=== PATIENT | male | born 1975 | race Two or more races ===

== ENCOUNTER 2020-10-22 13:00 | Day surgery (SDC) | payer MEDICAID ==
[2020-10-18 13:45] LABS: Basophils # (auto) 0 10 ^3/uL (0-0.2); Basophils % (auto) 0.6 % (0.0-2.0); Eosinophils # (auto) 0.2 10 ^3/uL (0-0.8); Eosinophils % (auto) 2.4 % (0.0-7.0); Hematocrit 45.9 % (41.0-53.0); Lymphocytes # (auto) 2.4 10 ^3/uL (0.4-5.4); Lymphocytes % (auto) 32.2 % (10.0-50.0); Mean Corpuscular Hemoglobin 29.8 pg (28.0-32.0); Mean Corpuscular Volume 85.1 fL (80.0-100.0); Monocytes # (auto) 0.8 10 ^3/uL (0-1.3); Monocytes % (auto) 10.7 % (0.0-12.0); Neutrophils # (auto) 4.1 10 ^3/uL (1.6-8.6); Neutrophils % (auto) 54.1 % (37.0-80.0); Nucleated Red Blood Cells % 0.1 %; Red Blood Cells 5.39 10^6/uL (4.5-5.90); Red Cell Distribution Width 14.1 % (11.8-14.3); White Blood Cell 7.6 10^3/uL (4.4-10.8)
[2020-10-18 14:26] LABS: Urine Bacteria NONE SEEN /hpf (None Seen); Urine Blood TRACE /uL (Negative); Urine Specific Gravity 1.028 (1.001-1.035); Urine WBC 1 /hpf (0 - 3)
[2020-10-18 14:37] LABS: Albumin 3.6 g/dL (3.4-5.0); Calcium 8.7 mg/dL (8.5-10.1); Potassium 4.2 mmol/L (3.5-5.1)
[2020-10-18 14:40] LABS: BUN/Creatinine Ratio 19.3; Bilirubin, Total 0.3 mg/dL (0.2-1.0); Total Protein 7.5 g/dL (6.4-8.2)
[~2020-10-22] VITALS: Ht 180.3 cm; Wt 95.3 kg
[2020-10-22] MEDS ORDERED: ceFAZolin 1GM/50ML 100 ML IV ONE (13:11)
[2020-10-22] MEDS ORDERED: LIDOCAINE 2% (LOCAL ANESTH.) PF 5ml SDV ONE (15:29)
[2020-10-22] MEDS ORDERED: GLYCOPYRROLATE 0.2 MG/ML 1ML VIAL ONE (15:29)
[2020-10-22] MEDS ORDERED: KETOROLAC TROMETH 30 MG/ML 1ML VIAL ONE (15:29)
[2020-10-22] MEDS ORDERED: MIDAZOLAM HCL 2MG/2ML 2ml VIAL (1mg/ml) ONE (15:29)
[2020-10-22] MEDS ORDERED: MEPERIDINE HCL (50 MG/ML) 1 ML VIAL ONE (15:29)
[2020-10-22] MEDS ORDERED: DexAMETHasone SOD PHOS 10MG/1ML VIAL INJ ONE (15:29)
[2020-10-22] MEDS ORDERED: fentaNYL CITRATE 100 MCG/2 ML VL ONE (15:29)
[2020-10-22] MEDS ORDERED: ONDANSETRON HCL 4 MG/2 ML VIAL ONE (15:29)
[2020-10-22] MEDS ORDERED: PROPOFOL 10 MG/ML 20 ML IV ONE (15:29)
[2020-10-22] MEDS ORDERED: EPINEPHrine HCL 1 MG/1 ML AMP ONE (17:51)
[2020-10-22] MEDS ORDERED: BUPIVACAINE HCL 50 ML ONE (17:51)
[2020-10-22] MEDS ORDERED: ONDANSETRON HCL 4 MG/2 ML VIAL IV PRN (19:30)
[2020-10-22] MEDS ORDERED: HYDROmorphone HCL 2 MG/ML VL IV PRN (19:30)
[2020-10-22 20:00] VITALS: BP 111/81
== END 2020-10-22 20:15 | disposition home or self-care (01) ==
LOC: SUR 13:00
PROVIDERS: ATTEND Orthopaedic Surgery Sports Medicine
DX: S83.232D Complex tear of medial meniscus, current injury, left knee, subsequent encounter (principal); Z90.49 Acquired absence of other specified parts of digestive tract; Z68.29 Body mass index [BMI] 29.0-29.9, adult; Z20.822 Contact with and (suspected) exposure to COVID-19; X58.XXXD Exposure to other specified factors, subsequent encounter
CPT/HCPCS: 29882; 36415; 80053; 81001; 85025; J0171; J0690; J1100; J1885; J2001; J2175; J2250; J2405; J2704; J3010; J3490; U0003

== ENCOUNTER 2024-10-20 23:39 | Inpatient (IN) | payer MEDICAID ==
[~2024-10-20] VITALS: Ht 180.3 cm; Wt 97.5 kg
--- NOTE | 2024-10-20 23:53 | ECG ---
[facility] Test Date: 2024-10-20 Test Time: 23:42:58 Pat Name: ROMEO SMITH Department: Room: 0235 Gender: M Director Distribution: SCOTT : 1975 Requested By: PARVIZ PERES Order Number: [id number] Reading MD: Tian Caicedo Measurements Intervals [place] Rate: 123 P: 25 NE: 114 QRS: -13 QRSD: 77 T: 14 QT: 290 QTc: 415 Interpretive Statements Sinus tachycardia Electronically Signed On 10-25-2024 9:27:46 PDT by Tian Caicedo Please click the below link to view image of tracing.
[2024-10-21] VITALS (8 sets, daily range): BP systolic 102–115; BP diastolic 69–82; PULSE 70–97; RESP 16–21; TEMP 97.6–98.5; O2SAT 90–96
[2024-10-21] MEDS: IPRATROPIUM BROM 0.5 MG/2.5ML INH SOL NEB ONE
[2024-10-21] MEDS: ALBUTEROL SULF 2.5 MG/0.5ML(0.5%) NEB SOLN NEB ONE
--- NOTE | 2024-10-21 00:06 | ED.PDOC ---
History of Present Illness HPI Comments This patient is a 49-year-old male who arrived at the ED today via EMS for shortness of breath concerns for the past three days.. Patient recently diagnosed with thrombotic thrombocytopenic purpura. States for the past 3 days, generalized weakness associated with fever, chills, cough, and shortness a breath. Denies any acute chest pains. Upon arrival patient tachycardic at 130s, saturating 90 sat room air. Chief Complaint: Shortness a breath Time Seen by MD: 00:05 Reviewed Notes: Outreach Liaison Notes Allergies: Coded Allergies: NO KNOWN ALLERGIES (Unverified , 10/18/20) Home Meds No Active Prescriptions or Reported Meds Information Source: Patient Mode of Arrival: EMS Severity: Moderate Timing: Days Duration: Intermittent Prehospital treatment: Oxygen Past Medical History PAST MEDICAL HISTORY: Arthritis Past Medical History (Other): Thrombotic thrombocytopenic purpura Surgical History: Denies all surgeries Family History Family History: Reviewed,noncontributory to illness Social History Smoker: Non-Smoker Alcohol: Denies ETOH Use Drugs: Denies Drug Use Lives In: Home Constitutional: reports: chills, fever, weakness; denies: diaphoresis, fatigue, malaise, sweats, others EENTM: denies: blurred vision, double vision, ear bleeding, ear discharge, ear drainage, ear pain, ear ringing, eye pain, eye redness, hearing loss, mouth pain, mouth swelling, nasal discharge, nose bleeding, nose congestion, nose pain, photophobia, tearing, throat pain, throat swelling, voice changes, others Respiratory: reports: cough, SOB at rest, shortness of breath; denies: hemoptysis, orthopnea, SOB with excertion, stridor, wheezing, others Cardiovascular: reports: palpitations; denies: chest pain, dizzy spells, diaphoresis, Dyspnea on exertion, edema, irregular heart beat, left arm pain, lightheadedness, PND, syncope, others Gastrointestinal: denies: abdomen distended, abdominal pain, blood streaked bowels, constipated, diarrhea, dysphagia, difficulty swallowing, hematemesis, melena, nausea, poor appetite, poor fluid intake, rectal bleeding, rectal pain, vomiting, others Genitourinary: denies: burning, dysuria, flank pain, frequency, hematuria, incontinence, penile discharge, penile sore, pain, testicle pain, testicle swelling, urgency, others Neurological: denies: dizziness, fainting, headache, left sided numbness, left sided weakness, numbness, paresthesia, pre-existing deficit, right sided numbness, right sided weakness, seizure, speech problems, tingling, tremors, weakness, others Musculoskeletal: denies: back pain, gout, joint pain, joint swelling, muscle pain, muscle stiffness, neck pain, others Integumetry: denies: bruises, change in color, change in hair/nails, dryness, laceration, lesions, lumps, rash, wounds, others Allergic/Immunocompromised: denies: Difficulty Healing, Frequent Infections, Hives, Itching, others Hematologic/Lymphatic: denies: anemia, blood clots, easy bleeding, easy bruising, swollen glands, others Endocrine: denies: excessive hunger, excessive sweating, excessive thirst, excessive urination, flushing, intolerance to cold, intolerance to heat, unexplained weight gain, unexplained weight loss, others Psychiatric: denies: anxiety, bipolar disorder, depression, hopeless, panic disorder, schizophrenia, sleepless, suicidal, others Physical Exam General Appearance: Moderate Distress (Patient was in moderate distress due to shortness a breath and general illness concerns.), Normal HEENT: Normal ENT Inspection, Pharynx Normal, TMs Normal Neck: Full Range of Motion, Non-Tender, Normal, Normal Inspection Respiratory: Chest Non-Tender, No Accessory Muscle Use, Other (Patient is patchy wheezing and rhonchi appreciated globally in bilateral lung wade.) Cardiovascular: No Edema, No JVD, No Murmur, No Gallop, Normal Peripheral Pulses, Regular Rate/Rhythm Breast Exam: Deferred Gastrointestinal: No Organomegaly, Non Tender, No Pulsatile Mass, Normal Bowel Sounds, Soft Genitalia: Deferred Pelvic: Deferred Rectal: Deferred Extremities: No calf tenderness, Normal capillary refill, Normal inspection, Normal range of motion, Non-tender, No pedal edema Musculoskeletal : Apperance: Normal Neurologic: Alert, No Motor Deficits, Normal Affect, Normal Mood, No Sensory D eficits Cerebellar Function: NOT DONE Reflexes: NOT DONE Skin: Dry, Normal Color, Warm Lymphatic: No Adenopathy Was a procedure done? Was a procedure done?: No EKG EKG : Pulse Rate (adult): 123 Cardiac Rhythm: ST Differential Dx Considerations may include: Anemia, electrolyte imbalance, pneumonia, upper respiratory infection, acute respiratory distress X-Ray, Labs, Meds, VS Vital Signs Date Time Temp Pulse Resp B/P (MAP) Pulse Ox O2 Delivery O2 Flow Rate FiO2 10/21/24 02:10 100.6 10/21/24 00:06 123 10/21/24 00:00 24 94 Nasal Cannula* 2 28 10/20/24 23:42 123 10/20/24 23:40 100.6 126 30 115/72 96 100.6 Lab Test 10/20/24 23:57 Range/Units White Blood Count 8.0 4.4-10.8 10^3/uL Red Blood Count 4.04 L 4.5-5.90 10^6/uL Hemoglobin 12.9 L 13.5-17.5 g/dL Hematocrit 37.7 L 41.0-53.0 % Mean Corpuscular Volume 93.4 80.0-100.0 fL Mean Corpuscular Hemoglobin 32.0 28.0-32.0 pg Mean Corpuscular Hemoglobin Concent 34.2 32.0-36.0 g/dL Red Cell Distribution Width 16.1 H 11.8-14.3 % Platelet Count 221 140-450 10^3/uL Mean Platelet Volume 6.9 6.9-10.8 fL Neutrophils (%) (Auto) 79.7 37.0-80.0 % Lymphocytes (%) (Auto) 13.4 10.0-50.0 % Monocytes (%) (Auto) 4.5 0.0-12.0 % Eosinophils (%) (Auto) 2.1 0.0-7.0 % Basophils (%) (Auto) 0.3 0.0-2.0 % Neutrophils # (Auto) 6.4 1.6-8.6 10 ^3/uL Lymphocytes # (Auto) 1.1 0.4-5.4 10 ^3/uL Monocytes # (Auto) 0.4 0-1.3 10 ^3/uL Eosinophils # (Auto) 0.2 0-0.8 10 ^3/uL Basophils # (Auto) 0 0-0.2 10 ^3/uL Nucleated Red Blood Cells 0.1 % Sodium Level 141 136-145 mmol/L Potassium Level 4.2 3.5-5.1 mmol/L Chloride Level 107 98-107 mmol/L Carbon Dioxide Level 25 20-31 mmol/L Anion Gap 9 5-15 Blood Urea Nitrogen 18 9-23 mg/dL Creatinine 0.84 0.700-1.30 mg/dL Glomerular Filtration Rate Calc 106 >90 mL/min BUN/Creatinine Ratio 21.4 H 10.0-20.0 Serum Glucose 131 H 74-106 mg/dL Calcium Level 8.2 L 8.7-10.4 mg/dL Troponin I High Sensitivity < 3 L </=54 ng/L Lipase 74 H 12-53 U/L Current Medications Medications (Trade) Dose Ordered Sig/Traci Route Start Time Stop Time Status Last Admin Albuterol (Ventolin Medneb) 5 mg ONCE ONCE NEB 10/21/24 00:00 10/21/24 00:01 DC 10/21/24 00:00 Ipratropium [place] (Atrovent Medneb) 0.5 mg ONCE ONCE NEB 10/21/24 00:00 10/21/24 00:01 DC 10/21/24 00:00 Dexamethasone Sodium Phosphate (Decadron Injection) 10 mg ONCE ONCE IV 10/21/24 00:00 10/21/24 00:01 DC 10/21/24 02:13 Acetaminophen (Tylenol Tablet) 1,000 mg ONCE ONCE PO 10/21/24 00:00 10/21/24 00:01 DC 10/21/24 02:10 CHEST RADIOGRAPH Indication: Shortness of breath Technique: 1 view Comparison: None FINDINGS: Lines and Tubes: None Lungs/Pleura: Significant diffuse bilateral interstitial opacities without consolidation. No evident pleural abnormality. Cardiomediastinum: Unremarkable. Other: No acute osseous abnormality. IMPRESSION: 1. Diffuse bilateral interstitial opacities without consolidation, suggestive of edema or atypical infection. X-Ray, Labs, Meds, VS Comment All studies performed the ED were evaluated by me personally. Serum laboratories were remarkable for elevated lipase indicative of a pancreatitis. Chest x-ray revealed diffuse bilateral interstitial opacities without sedation suggestive of edema or atypical infection. EKG revealed a sinus tachycardia with a rate of 123. AK interval 114 and QT interval 290. Patient continued to require O2 supplementation at the facility to keep his oxygen saturation above 90% and therefore, patient will be admitted for pancreatitis, pneumonia and acute respiratory distress. Time of 1ST Reevaluation: 02:34 Reevaluation 1ST: Improved Consultation: PCP Patient Education/Counseling: Diagnosis, Treatment Family Education/Counseling: Diagnosis, Treatment, No Family Present SEPSIS Sepsis Screen Recent Procedure: No On Antibiotic Therapy: No Respiratory Rate >20: No Heart Rate >90: No Temp<36 C (96.8 F) or >38.3 C: No SBP <90 or MAP <65 mmHG: No New Acute Mental Status Change: No Is the patient on CPAP, BIPAP,: No Physician Orders Chest Portable (10/20/24 23:49) Covid19 Antigen Britta (10/20/24 ) Rapid Influenza A&B (10/20/24 23:49) Heplock Iv (10/20/24 ) Vital Signs Date Time Temp Pulse Resp B/P (MAP) Pulse Ox O2 Delivery O2 Flow Rate FiO2 10/21/24 02:10 100.6 10/21/24 00:06 123 10/21/24 00:00 24 94 Nasal Cannula* 2 28 10/20/24 23:42 123 10/20/24 23:40 100.6 126 30 115/72 96 100.6 Laboratory Tests Test 10/20/24 23:57 White Blood Count 8.0 10^3/uL (4.4-10.8) Medications Medications Dose Ordered Sig/Traci Route Start Time Stop Time Status Last Admin Dose Admin Acetaminophen 1,000 mg ONCE ONCE PO 10/21/24 00:00 10/21/24 00:01 DC 10/21/24 02:10 Albuterol 5 mg ONCE ONCE NEB 10/21/24 00:00 10/21/24 00:01 DC 10/21/24 00:00 Dexamethasone Sodium Phosphate 10 mg ONCE ONCE IV 10/21/24 00:00 10/21/24 00:01 DC 10/21/24 02:13 Ipratropium [place] 0.5 mg ONCE ONCE NEB 10/21/24 00:00 10/21/24 00:01 DC 10/21/24 00:00 Departure 1 Departure Time of Disposition: 02:35 Impression: Primary Impression: Pneumonia Additional Impressions: Acute respiratory distress Pancreatitis Disposition: ADMITTED INPATIENT Condition: Fair e-Prescriptions No Active Prescriptions or Reported Meds Discharged With: Self Critical Care Note Critical Care Time?: No Stability Stability form required: No Heart Score Heart Score: Heart Score Response (Comments) Value History Slightly Suspicious 0 EKG Repolarization Disturb 1 Age 45-64 1 Risk Factors 1 or 2 risk factors 1 Troponin Normal limit 0 Total 3 I personally scribed for PARVIZ PERES PAC ([email or web address]) on 10/21/24 at 00:06. Electronically submitted by Omar Easley ([facility]). I personally scribed for PARVIZ PERES PAC ([email or web address]) on 10/21/24 at 01:18. Electronically [facility] PARVIZ PERES PAC Oct 21, 2024 00:06
[2024-10-21 00:13] LABS: Hematocrit 37.7 % (41.0-53.0); Hemoglobin 12.9 g/dL (13.5-17.5); Mean Corpuscular Hemoglobin 32.0 pg (28.0-32.0); Mean Corpuscular Volume 93.4 fL (80.0-100.0); Nucleated Red Blood Cells % 0.1 %
[2024-10-21 00:14] LABS: Chloride 107 mmol/L (98-107); Potassium 4.2 mmol/L (3.5-5.1); Sodium 141 mmol/L (136-145)
[2024-10-21 00:15] LABS: Anion Gap 9 (5-15); Carbon Dioxide 25 mmol/L (20-31)
[2024-10-21 00:17] LABS: Calcium 8.2 mg/dL (8.7-10.4)
[2024-10-21 00:20] LABS: BUN/Creatinine Ratio 21.4 (10.0-20.0); Blood Urea Nitrogen 18 mg/dL (9-23)
[2024-10-21 00:21] LABS: Glucose 131 mg/dL (74-106)
[2024-10-21 00:24] LABS: Lipase 74 U/L (12-53)
--- NOTE | 2024-10-21 00:30 | DVH ---
CHEST RADIOGRAPH Indication: Shortness of breath Technique: 1 view Comparison: None FINDINGS: Lines and Tubes: None Lungs/Pleura: Significant diffuse bilateral interstitial opacities without consolidation. No evident pleural abnormality. Cardiomediastinum: Unremarkable. Other: No acute osseous abnormality. IMPRESSION: 1. Diffuse bilateral interstitial opacities without consolidation, suggestive of edema or atypical in fection.
[2024-10-21] MEDS: ACETAMINOPHEN 325 MG TAB PO ONE (02:10)
[2024-10-21] MEDS ORDERED: ACETAMINOPHEN 325 MG TAB PO PRN (05:15)
--- NOTE | 2024-10-21 05:51 | DVHHPRES ---
History of Present Illness Resident Creating Document: BRENDEN EDWARDS RESIDENT History of Present Illness Shreyas Prescott is a 49-year-old male with past medical history of thrombotic thrombocytic purpura, rheumatoid arthritis who came to the ED with chief complaints of shortness of breath, fever, chills, dry cough since 3 days a ssociated with generalized weakness and body pains. Denies any chest pain, palpitations, nausea, vomiting, diarrhea, dizziness, headaches, hemoptysis, dysuria. On arrival patient was tachycardic and was at 90% saturation at room air. Currently patient is on 2 L oxygen and is tolerating well. Patient takes prednisone for his rheumatoid arthritis. Chest x-ray showed Diffuse bilateral interstitial opacities without consolidation. Patient is admitted for further management. Past medical history: thrombotic thrombocytic purpura, rheumatoid arthritis Past surgical history: Appendicectomy, right knee surgery Family history: Denies Personal history: Denies smoking, drinking, drug use Lives with: Family PCP: Dr. Cortes Review of Systems Constitutional: Yes: Fever, Chills; No: Sweats, Weakness, Malaise, Other Eyes: No: Pain, Vision change, Conjunctivae inflammation, Eyelid inflammation, Other, Redness ENT: No: Ear pain, Ear discharge, Nose pain, Nose discharge, Nose congestion, Mouth pain, Mouth swelling, Throat pain, Throat swelling, Other Respiratory: Shortness of breath; No: Cough, Dry, SOB with excertion, Wheezing, Hemoptysis, Pleuritic Pain, Sputum, Wheezing, Other Cardiovascular: No: Chest Pain, Palpitations, Orthopnea, Paroxysmal Noc. Dyspnea, Edema, Lt Headedness, Other Gastrointestinal: No: Nausea, Vomiting, Abdominal Pain, Diarrhea, Constipation, Melena, Hematochezia, Other Genitourinary: No Dysuria, No Frequency, No Incontinence, No Hematuria, No Retention, No Other Musculoskeletal: No: other, neck pain, shoulder pain, arm pain, back pain, hand pain, leg pain, foot pain Skin: No: Rash, Lesions, Jaundice, Bruising, Other Neurological: No: Weakness, Numbness, Incoordination, Change in speech, Confusion, Seizures, Other Allergies: Coded Allergies: NO KNOWN ALLERGIES (Unverified , 10/18/20) Medications Current Medications Medications Dose Ordered Sig/Traci Route Start Time Stop Time Status Last Admin Dose Admin Acetaminophen 650 mg Q6HP PRN PO 9/13/25 05:15 Ceftriaxone Sodium 50 ml @ 100 mls/hr DAILY@09 IV 10/21/24 05:30 Azithromycin 250 ml @ 125 mls/hr DAILY IV 10/21/24 05:30 Exam Vital Signs Vital Signs Date Time Temp Pulse Resp B/P (MAP) Pulse Ox O2 Delivery O2 Flow Rate FiO2 10/21/24 05:20 97.5 10/21/24 05:00 79 21 104/70 (81) 96 10/21/24 00:00 Nasal Cannula* 2 28 Exam General: Patient alert and oriented in person, place and time. Patient following commands. HEENT: Normocephalic, atraumatic, moist mucous membranes Respiratory/pulmonary: Bilateral crackles heard on auscultation Cardiovascular: Normal heart sounds S1 and S2 with no associated murmurs Abdomen: Abdomen nondistended, there is no pain to palpation in any of the abdominal quadrants, no palpable masses. Extremities: There is no peripheral edema present at the lower extremities. Peripheral Pulses: 3+ Radial (R). 3+ Radial (L). 3+ Dorsalis pedis (R). 3+ Dorsalis pedis(L) Skin: No rashes or pruritus, there is no sacral edema present at this time. Neurological: Intact cranial nerves with no focal neurologic deficits Labs/Xrays Labs Test 10/21/24 05:30 10/20/24 23:57 Range/Units Eosinophils (%) (Auto) 2.1 0.0-7.0 % Eosinophils # (Auto) 0.2 0-0.8 10 ^3/uL Basophils # (Auto) 0 0-0.2 10 ^3/uL Nucleated Red Blood Cells 0.1 % SEPSIS Sepsis Screen Date sepsis recognized/suspect: Oct 21, 2024 Time Sepsis recognized/suspect: 2339 Recent Procedure: No On Antibiotic Therapy: No Respiratory Rate >20: No Heart Rate >90: No Temp<36 C (96.8 F) or >38.3 C: No SBP <90 or MAP <65 mmHG: No New Acute Mental Status Change: No Is the patient on CPAP, BIPAP,: No Physician Orders Chest Portable (10/20/24 23:49) Covid19 Antigen Britta (10/20/24 ) Rapid Influenza A&B (10/20/24 23:49) Heplock Iv (10/20/24 ) Admit (10/21/24 05:06) Allergies (10/21/24 05:06) Code Status (10/21/24 05:06) Complete Blood Count (10/21/24 05:06) Comprehensive Metabolic Panel (10/21/24 05:06) Condition: Serious (10/21/24 05:06) Acetaminophen Tablet (Tylenol Tablet) (10/21/24 05:15) Bedrest With Bathroom Privileg (10/21/24 05:06) Regular Diet (10/21/24 Breakfast) Lipase (10/21/24 05:17) Mrsa Screen (10/21/24 05:24) Electrocardigram (10/21/24 05:24) Troponin-I Hs (10/21/24 05:24) B-Type Natriuretic Peptide (10/21/24 05:24) Ceftriaxone 1gm/50ml (Rocephin) (10/21/24 05:30) Azithromycin 500mg/ 250ml (Zithromax 50 (10/21/24 05:30) Respiratory Culture W/ Gs (10/21/24 05:24) Lactic Acid W/ Reflex Order (10/21/24 05:24) Blood Culture (10/21/24 05:24) Urinalysis (10/21/24 05:29) Drug Screen (10/21/24 05:29) Vital Signs Date Time Temp Pulse Resp B/P (MAP) Pulse Ox O2 Delivery O2 Flow Rate FiO2 10/21/24 05:20 97.5 10/21/24 05:00 97.6 79 21 104/70 (81) 96 97.6 10/21/24 02:10 100.6 10/21/24 00:06 123 10/21/24 00:00 24 94 Nasal Cannula* 2 28 10/20/24 23:42 123 10/20/24 23:40 100.6 126 30 115/72 96 100.6 Laboratory Tests Test 10/20/24 23:57 10/21/24 05:30 White Blood Count 8.0 10^3/uL (4.4-10.8) Pending Medications Medications Dose Ordered Sig/Traci Route Start Time Stop Time Status Last Admin Dose Admin Acetaminophen 1,000 mg ONCE ONCE PO 10/21/24 00:00 10/21/24 00:01 HI 10/21/24 02:10 1,000 MG Albuterol 5 mg ONCE ONCE NEB 10/21/24 00:00 10/21/24 00:01 DC 10/21/24 00:00 5 MG Dexamethasone Sodium Phosphate 10 mg ONCE ONCE IV 10/21/24 00:00 10/21/24 00:01 DC 10/21/24 02:13 10 MG Ipratropium [place] 0.5 mg ONCE ONCE NEB 10/21/24 00:00 10/21/24 00:01 HI 10/21/24 00:00 0.5 MG Assessment/Plan Assessment/Plan Assessment and plan # sepsis due to pneumonia # ?Gram-positive/Gram-negative community-acquired pneumonia ?Atypical pneumonia # acute hypoxic respiratory failure - patient on 2 L oxygen - viral/mycoplasma? - IV fluids - IV ceftriaxone - IV azithromycin - sputum culture, pending - blood culture, pending - chest x-ray shows Diffuse bilateral interstitial opacities without consolidation # rheumatoid arthritis -stress dose of dexamethasone was given - prednisone 20 mg b.i.d. given # History of thrombotic thrombocytic purpura Goals of care addressed with the patient for more than 31 minutes: Full code status Case discussed with Dr. Shepherd , patient and nurse Plan discussed with: Patient My Orders Orders - BRENDEN EDWARDS RESIDENT Procedure Category Date Status Time Admit ADMIT 10/21/24 Transmitted 05:[address] [facility] 10/21/24 In Process 05:06 Code Status CODE 10/21/24 Transmitted 05:06 Complete Blood Count LAB 10/21/24 In Process 05:06 Comprehensive LAB 10/21/24 Logged Metabolic Panel 05:06 Condition: Serious ARIES 10/21/24 In Process 05:06 Acetaminophen Tablet PHA 10/21/24 In Process (Tylenol Tablet) 05:15 Bedrest With Bathroom ARIES 10/21/24 In Process Privileg 05:06 Regular Diet DIET 10/21/24 Transmitted Breakfast Lipase LAB 10/21/24 In Process 05:17 Mrsa Screen PRICE 10/21/24 Uncollected 05:24 Electrocardigram EKG 10/21/24 Logged 05:24 Troponin-I Hs LAB 10/21/24 In Process 05:24 B-Type Natriuretic LAB 10/21/24 In Process Peptide 05:24 Ceftriaxone 1gm/50ml PHA 10/21/24 In Process (Rocephin) 05:30 Azithromycin 500mg/ PHA 10/21/24 In Process 250ml (Zithromax 50 05:30 Respiratory Culture PRICE 10/21/24 Uncollected W/ Gs 05:24 Lactic Acid W/ Reflex LAB 10/21/24 Logged Order 05:24 Blood Culture PRICE 10/21/24 Uncollected 05:24 Urinalysis LAB 10/21/24 Logged 05:29 Drug Screen LAB 10/21/24 Logged 05:29 Date of Service: Oct 21, 2024 Billing Provider: ANTIONE SHEPHERD MD Common Visit Codes: [id number] INP/OBS CARE (HIGH) Secondary Visit Codes: [id number] CARE PLAN 30 MINUTES BRENDEN EDWARDS RESIDENT Oct 21, 2024 05:51 LAY BERNAL RESIDENT Oct 21, 2024 08:21
[2024-10-21 06:02] LABS: Hematocrit 39.3 % (41.0-53.0); Hemoglobin 13.6 g/dL (13.5-17.5); Mean Corpuscular Hemoglobin 32.1 pg (28.0-32.0); Mean Corpuscular Volume 92.9 fL (80.0-100.0); Nucleated Red Blood Cells % 0.0 %
[2024-10-21 06:17] LABS: Alanine Aminotransferase 51 U/L (7-40); Albumin 3.6 g/dL (3.2-4.8); Alkaline Phosphatase 61 U/L (46-116); Anion Gap 9 (5-15); BUN/Creatinine Ratio 22.5 (10.0-20.0); Bilirubin, Total 0.4 mg/dL (0.2-1.0); Blood Urea Nitrogen 18 mg/dL (9-23); Calcium 8.5 mg/dL (8.7-10.4); Carbon Dioxide 25 mmol/L (20-31); Chloride 104 mmol/L (98-107); Glucose 218 mg/dL (74-106); Potassium 4.4 mmol/L (3.5-5.1); Sodium 138 mmol/L (136-145); Total Protein 6.1 g/dL (5.7-8.2)
[2024-10-21 06:37] LABS: COVID19 ANTIGEN SOFIA FIA NEGATIVE (NEGATIVE)
[2024-10-21] MEDS: AZITHROMYCIN 500MG/ 250ML 250 ML IV SCH (06:39)
[2024-10-21] MEDS ORDERED: PRE5T PO (07:42)
[2024-10-21 07:51] LABS: Lactic Acid w/Reflex 2.4 mmol/L (0.4-2.0)
[2024-10-21] MEDS: SODIUM CHLORIDE 0.9% 250 ML IV ONE ×2 (08:53)
[2024-10-21] MEDS: predniSONE 20 MG TAB PO SCH (08:54)
[2024-10-21] MEDS: SODIUM CHLORIDE 0.9% 1,000 ML IV SCH (10:15)
[2024-10-21] MEDS ORDERED: ASPI81CH59 PO (13:06)
[2024-10-21] MEDS ORDERED: GABA-1250 PO (13:06)
[2024-10-21 14:22] LABS: Lactic Acid w/Reflex 2.9 mmol/L (0.4-2.0)
[2024-10-21] MEDS ORDERED: HYDR-4491 PO (20:46)
[2024-10-21] MEDS ORDERED: PRED20TA2 PO (20:46)
[2024-10-22] VITALS (8 sets, daily range): BP systolic 103–114; BP diastolic 66–82; PULSE 60–85; RESP 16–21; TEMP 97.7–98.5; O2SAT 93–98
[2024-10-22] MEDS ORDERED: DEXTROSE (50%) 50ML SYRG IV PRN (03:00)
[2024-10-22] MEDS: ACCU-CHEK COMFORT CURVE STRIP VI SCH (03:00)
[2024-10-22] MEDS: InsuLIN REG 1unit/0.01ml Soln (100units/ml) SC SCH (03:00)
[2024-10-22] MEDS: InsuLIN REG 1unit/0.01ml Soln (100units/ml) ONE ×2 (07:05→12:12)
--- NOTE | 2024-10-22 17:27 | DVHPN2 ---
Subjective Overnight events noted. Patient's denies any fevers chills. Blood cultures are pending to date. Changes from previous H/P or p: No Changes Eyes: No Pain, No Vision change, No Conjunctivae inflammation, No Eyelid inflammation, No Other, No Redness ENT: No Ear pain, No Ear discharge, No Nose pain, No Nose discharge, No Nose congestion, No Mouth pain, No Mouth swelling, No Throat pain, No Throat swelling, No Other Cardiovascular: No Chest Pain, No Palpitations, No Orthopnea, No Paroxysmal Noc. Dyspnea, No Edema, No Lt Headedness, No Other Respiratory: No Cough, No Dry; Shortness of breath; No SOB with excertion, No Wheezing, No Hemoptysis, No Pleuritic Pain, No Sputum, No Other Gastrointestinal: No Nausea, No Vomiting, No Abdominal Pain, No Diarrhea, No Constipation, No Melena, No Hematochezia, No Other Genitourinary: No Dysuria, No Frequency, No Incontinence, No Hematuria, No Retention, No Other Musculoskeletal: No other, No neck pain, No shoulder pain, No arm pain, No back pain, No hand pain, No leg pain, No foot pain Skin: No Rash, No Lesions, No Jaundice, No Bruising, No Other Objective Vitals Vital Signs Date Time Temp Pulse Resp B/P (MAP) Pulse Ox O2 Delivery O2 Flow Rate FiO2 10/22/24 17:00 98.1 80 21 114/82 (93) 94 98.1 10/22/24 08:00 Nasal Cannula* 3 32 Intake/Output Intake and Output 10/22/24 07:00 Intake Total 580 ml Balance 580 ml Intake Oral 580 ml # Voids 9 # Bowel Movements 2 Exam HEENT pupils are reactive Neck is supple CV is S1-S2 regular rate and rhythm Respiratory diminished breath sounds bases GI positive bowel sound Extremity no edema [employer]ID[employer] 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 motor deficit Medications Current Medications Medications Dose Ordered Sig/Tarci Route Start Time Stop Time Status Last Admin Dose Admin Acetaminophen 650 mg Q6HP PRN PO 10/21/24 05:15 Ceftriaxone Sodium 50 ml @ 100 mls/hr DAILY@09 IV 10/21/24 05:30 10/22/24 09:13 100 MLS/HR Azithromycin 250 ml @ 125 mls/hr DAILY IV 10/21/24 05:30 10/22/24 10:25 125 MLS/HR Prednisone 20 mg DAILY PO 10/21/24 10:00 10/22/24 10:22 20 MG Sodium Chloride 1,000 ml @ 65 mls/hr [id number] IV 10/21/24 10:15 10/21/24 10:15 65 MLS/HR Diagnostic Test (Pha) 1 strip ACHS 10/22/24 03:00 10/22/24 11:30 1 STRIP Insulin Human Regular ACHS SC 10/22/24 03:00 10/22/24 11:30 3 UNITS Dextrose 50 ml UD PRN IV 10/22/24 03:00 Laboratory Results Laboratory Tests 10/21/24 05:30 Microbiology Microbiology Date/Time Source Procedure Growth Status 10/21/24 06:49 Nose MRSA Screen - Final Complete Assessment/Plan Assessment/Plan 49-year-old male with a known history of TTP, rheumatoid arthritis presented to the hospital with a fevers chills cough found to have 1. Community-acquired pneumonia 2. Acute hypoxic respiratory failure secondary to community-acquired pneumonia 3. Lactic acidosis 4. History of TTP currently on tapering prednisone 5. Rheumatoid arthritis -continue IV antibiotics, follow up blood cultures, once blood cultures are negative to date patient's can be discharged home on p.o. antibiotics. Plan discussed with: Patient Date of Service: Oct 22, 2024 Billing Provider: WATSON MELGAR MD Common Visit Codes: [id number] INP/OBS CARE(MOD) WATSON MELGAR MD Oct 22, 2024 17:27
[2024-10-23] VITALS (7 sets, daily range): BP systolic 105–118; BP diastolic 74–86; PULSE 66–85; RESP 16–18; TEMP 97.6–98.6; O2SAT 95–99
[2024-10-23 06:03] LABS: Hematocrit 37.9 % (41.0-53.0); Hemoglobin 13.3 g/dL (13.5-17.5); Mean Corpuscular Hemoglobin 32.2 pg (28.0-32.0); Mean Corpuscular Volume 91.8 fL (80.0-100.0); Nucleated Red Blood Cells % 0.2 %
[2024-10-23 06:12] LABS: Chloride 104 mmol/L (98-107); Potassium 3.8 mmol/L (3.5-5.1); Sodium 139 mmol/L (136-145)
[2024-10-23 06:13] LABS: Anion Gap 10 (5-15); Calcium 8.8 mg/dL (8.7-10.4); Carbon Dioxide 25 mmol/L (20-31)
[2024-10-23 06:18] LABS: BUN/Creatinine Ratio 17.1 (10.0-20.0); Blood Urea Nitrogen 12 mg/dL (9-23)
[2024-10-23 06:19] LABS: Magnesium 1.9 mg/dL (1.6-2.6)
[2024-10-23 06:51] LABS: Glucose 112 mg/dL (74-106)
--- NOTE | 2024-10-23 16:52 | DVHPN2 ---
Subjective Overnight events noted. Patient's denies any fevers chills. Blood cultures are pending to date. Changes from previous H/P or p: No Changes Eyes: No Pain, No Vision change, No Conjunctivae inflammation, No Eyelid inflammation, No Other, No Redness ENT: No Ear pain, No Ear discharge, No Nose pain, No Nose discharge, No Nose congestion, No Mouth pain, No Mouth swelling, No Throat pain, No Throat swelling, No Other Cardiovascular: No Chest Pain, No Palpitations, No Orthopnea, No Paroxysmal Noc. Dyspnea, No Edema, No Lt Headedness, No Other Respiratory: No Cough, No Dry; Shortness of breath; No SOB with excertion, No Wheezing, No Hemoptysis, No Pleuritic Pain, No Sputum, No Other Gastrointestinal: No Nausea, No Vomiting, No Abdominal Pain, No Diarrhea, No Constipation, No Melena, No Hematochezia, No Other Genitourinary: No Dysuria, No Frequency, No Incontinence, No Hematuria, No Retention, No Other Musculoskeletal: No other, No neck pain, No shoulder pain, No arm pain, No back pain, No hand pain, No leg pain, No foot pain Skin: No Rash, No Lesions, No Jaundice, No Bruising, No Other Objective Vitals Vital Signs Date Time Temp Pulse Resp B/P (MAP) Pulse Ox O2 Delivery O2 Flow Rate FiO2 10/23/24 13:00 98.3 77 17 112/80 (91) 99 98.3 10/23/24 08:10 Nasal Cannula* 3 32 Intake/Output Intake and Output 10/23/24 07:00 Intake Total 1350 ml Output Total 600 ml Balance 750 ml Intake Oral 985 ml IV Total 365 ml Output Urine Total 600 ml # Voids 5 # Bowel Movements 2 Exam HEENT pupils are reactive Neck is supple CV is S1-S2 regular rate and rhythm Respiratory diminished breath sounds bases GI positive bowel sound Extremity no edema [employer] no motor deficit Medications Current Medications Medications Dose Ordered Sig/Traci Route Start Time Stop Time Status Last Admin Dose Admin Acetaminophen 650 mg Q6HP PRN PO 10/21/24 05:15 Ceftriaxone Sodium 50 ml @ 100 mls/hr DAILY@09 IV 10/21/24 05:30 10/23/24 08:30 100 MLS/HR Azithromycin 250 ml @ 125 mls/hr DAILY IV 10/21/24 05:30 10/23/24 10:58 125 MLS/HR Prednisone 20 mg DAILY PO 10/21/24 10:00 10/23/24 10:58 20 MG Sodium Chloride 1,000 ml @ 65 mls/hr [id number] IV 10/21/24 10:15 10/23/24 08:30 65 MLS/HR Diagnostic Test (Pha) 1 strip ACHS 10/22/24 03:00 10/23/24 11:02 1 STRIP Insulin Human Regular ACHS SC 10/22/24 03:00 10/23/24 11:47 3 UNITS Dextrose 50 ml UD PRN IV 10/22/24 03:00 Laboratory Results Laboratory Tests 10/23/24 05:36 Chemistry Test 10/23/24 05:36 Calcium Level 8.8 mg/dL (8.7-10.4) Magnesium Level 1.9 mg/dL (1.6-2.6) Microbiology Microbiology Date/Time Source Procedure Growth Status 10/22/24 08:33 Blood Blood Culture - Preliminary NO GROWTH AFTER 24 HOURS OF INCUBATION. Resulted 10/21/24 06:49 Nose MRSA Screen - Final Complete Assessment/Plan Assessment/Plan 49-year-old male with a known history of TTP, rheumatoid arthritis presented to the hospital with a fevers chills cough found to have 1. Community-acquired pneumonia 2. Acute hypoxic respiratory failure secondary to community-acquired pneumonia 3. Lactic acidosis 4. History of TTP currently on tapering prednisone 5. Rheumatoid arthritis -continue IV antibiotics, blood cultures are negative to date. -repeat chest x-ray, discharge plan in next 24 hours.. Plan discussed with: Patient Date of Service: Oct 23, 2024 Billing Provider: WATSON MELGAR MD Common Visit Codes: [id number] INP/OBS CARE(MOD) WATSON MELGAR MD Oct 23, 2024 16:52
[2024-10-24 01:00] VITALS: BP 103/68; PULSE 70; RESP 18; TEMP 98.1; O2SAT 98
[2024-10-24 05:00] VITALS: BP 119/77; PULSE 72; RESP 18; TEMP 98.2; O2SAT 100
--- NOTE | 2024-10-24 06:11 | DVH ---
CHEST RADIOGRAPH Indication: Pneumonia Technique: Single frontal view of the chest was obtained Comparison: XY CHEST PORTABLE on DOS: 10/21/24 FINDINGS: Lines and Tubes: None Lungs: There are decreased bilateral opacities compared to prior study. Pleura: No effusion. No pneumothorax. Cardiomediastinal contours: Unremarkable Bones: No acute osseous abnormality. IMPRESSION: 1. Decreased bilateral pulmonary opacities compared to prior study.
[2024-10-24 07:26] LABS: Hematocrit 39.3 % (41.0-53.0); Hemoglobin 13.4 g/dL (13.5-17.5); Mean Corpuscular Hemoglobin 31.3 pg (28.0-32.0); Mean Corpuscular Volume 91.6 fL (80.0-100.0); Nucleated Red Blood Cells % 0.2 %
[2024-10-24 07:33] LABS: Anion Gap 10 (5-15); Calcium 8.8 mg/dL (8.7-10.4); Carbon Dioxide 28 mmol/L (20-31); Chloride 101 mmol/L (98-107); Potassium 3.7 mmol/L (3.5-5.1); Sodium 139 mmol/L (136-145)
[2024-10-24 07:39] LABS: BUN/Creatinine Ratio 17.9 (10.0-20.0); Blood Urea Nitrogen 14 mg/dL (9-23); Glucose 90 mg/dL (74-106); Magnesium 2.0 mg/dL (1.6-2.6)
[2024-10-24 09:00] VITALS: BP 119/81; PULSE 72; RESP 18; TEMP 98.2; O2SAT 100
[2024-10-24 12:57] VITALS: BP 112/85; PULSE 78; RESP 18; TEMP 98.1; O2SAT 98
[2024-10-24] MEDS ORDERED: AZIT500T66 PO (15:22)
[2024-10-24] MEDS ORDERED: CEFD300C2 PO (15:22)
--- NOTE | 2024-10-24 15:24 | DVHDS2 ---
Discharge Summary Date of Admission Oct 21, 2024 at 05:06 Date of Discharge: Oct 24, 2024 Labs/Diagnostic Data: Laboratory Results Test 10/24/24 12:41 10/24/24 05:21 10/23/24 05:36 10/21/24 05:30 POC Glucose 144 mg/dl (70-106) White Blood Count 7.9 10^3/uL (4.4-10.8) Red Blood Count 4.29 10^6/uL (4.5-5.90) Hemoglobin 13.4 g/dL (13.5-17.5) Hematocrit 39.3 % (41.0-53.0) Mean Corpuscular Volume 91.6 fL (80.0-100.0) Mean Corpuscular Hemoglobin 31.3 pg (28.0-32.0) Mean Corpuscular Hemoglobin Concent 34.2 g/dL (32.0-36.0) Red Cell Distribution Width 15.8 % (11.8-14.3) Platelet Count 303 10^3/uL (140-450) Mean Platelet Volume 7.4 fL (6.9-10.8) Neutrophils (%) (Auto) 68.3 % (37.0-80.0) Lymphocytes (%) (Auto) 20.7 % (10.0-50.0) Monocytes (%) (Auto) 8.3 % (0.0-12.0) Eosinophils (%) (Auto) 2.5 % (0.0-7.0) Basophils (%) (Auto) 0.2 % (0.0-2.0) Neutrophils # (Auto) 5.4 10 ^3/uL (1.6-8.6) Lymphocytes # (Auto) 1.6 10 ^3/uL (0.4-5.4) Monocytes # (Auto) 0.7 10 ^3/uL (0-1.3) Eosinophils # (Auto) 0.2 10 ^3/uL (0-0.8) Basophils # (Auto) 0 10 ^3/uL (0-0.2) Nucleated Red Blood Cells 0.2 % Sodium Level 139 mmol/L (136-145) Potassium Level 3.7 mmol/L (3.5-5.1) Chloride Level 101 mmol/L (98-107) Carbon Dioxide Level 28 mmol/L (20-31) Anion Gap 10 (5-15) Blood Urea Nitrogen 14 mg/dL (9-23) Creatinine 0.78 mg/dL (0.700-1.30) Glomerular Filtration Rate Calc 108 mL/min (>90) BUN/Creatinine Ratio 17.9 (10.0-20.0) Serum Glucose 90 mg/dL (74-106) Calcium Level 8.8 mg/dL (8.7-10.4) Magnesium Level 2.0 mg/dL (1.6-2.6) Lactic Acid Level 1.7 mmol/L (0.4-2.0) Hemoglobin A1c 7.3 % A1C (<5.7) Total Bilirubin 0.4 mg/dL (0.2-1.0) Aspartate Amino Transferase (AST) 31 U/L (13-40) Alanine Aminotransferase (ALT) 51 U/L (7-40) Alkaline Phosphatase 61 U/L (46-116) Troponin I High Sensitivity < 3 ng/L (</=54) B-Type Natriuretic Peptide 10.88 pg/mL (0-100) Total Protein 6.1 g/dL (5.7-8.2) Albumin 3.6 g/dL (3.2-4.8) Lipase 71 U/L (12-53) Test 10/20/24 05:56 Influenza Type A Antigen Negative (Negative) Influenza Type B Antigen Negative (Negative) SARS-CoV-2 Antigen (Rapid) Negative (NEGATIVE) Other Laboratory Tests 10/24/24 05:21 Brief Hx & Hospital Course: 49-year-old male with a known history of TTP, rheumatoid arthritis presented to the hospital with a fevers chills cough found to have bilateral community- acquired pneumonia. Patient was started on IV antibiotics. Patient's currently have tapered steroids secondary to TTP. Patient's chest x-ray improved to significant extent today. Patient will be discharged on p.o. antibiotics with a close follow up as an outpatient with the PCP and repeat chest x-ray in 4-6 weeks to make sure resolution of pneumonia. Otherwise needs further workup. Condition at Discharge: Stable Final Diagnosis/Problems List 49-year-old male with a known history of TTP, rheumatoid arthritis presented to the hospital with a fevers chills cough found to have 1. Community-acquired pneumonia 2. Acute hypoxic respiratory failure secondary to community-acquired pneumonia currently on room air 3. Lactic acidosis 4. History of TTP currently on tapering prednisone 5. Rheumatoid arthritis -continue IV antibiotics, blood Discharge Disposition: Home SNF Discharge Will this Physician continue t: No Discharge Instruct/Medications Diet: Cardiac 2g Na,low cholest Activity: No Restrictions, As Tolerated Follow Up/Referral: Follow up with the PCP in 1-2 weeks Repeat chest x-ray in 4-6 weeks to make sure resolution of pneumonia. Medications: Cefdinir and azithromycin as prescribed. New Medications: Azithromycin (Azithromycin) 500 Mg Tab 1 TAB PO DAILY, #3 TAB Cefdinir (Cefdinir) 300 Mg Cap 1 CAP PO BID, #14 CAP Continued Medications: Aspirin (Aspirin Low Dose) 81 Mg Chw 1 TAB PO DAILY Gabapentin (Gabapentin) 300 Mg Cap 1 CAP PO BID Hydroxychloroquine Sulfate (Plaquenil) 200 Mg Tab 1 TAB PO BID, #180 TAB 3 Refills Prednisone (Prednisone) 5 Mg Tab 3 PO TID Prednisone (Prednisone) 20 Mg Tab 20 MG PO, MG Scheduled Aspirin (Aspirin Low Dose), 1 TAB PO DAILY, (Reported) Azithromycin (Azithromycin), 1 TAB PO DAILY Cefdinir (Cefdinir), 1 CAP PO BID Gabapentin (Gabapentin), 1 CAP PO BID, (Reported) Hydroxychloroquine Sulfate (Plaquenil), 1 TAB PO BID, (Reported) Prednisone (Prednisone), 3 PO TID, (Reported) Miscellaneous Medications Prednisone (Prednisone), 20 MG PO, (Reported) Discharge Statement: "Patient was advised to return to the ER or call 911 if any headaches, dizziness, shortness of breath, chest pain, abdominal pain, bleeding, fevers, or worsening of medical condition. Patient was counseled about treatment plan, medications, possible side effects, patientverbalized understanding. All questions were answered to the best of my ability. This discharge took greater then 30 minutes in planning, reviewing documentation, counseling the patient, and discussing with other team members." ASSESSMENT ASSESSMENT Assessment 49-year-old male with a known history of TTP, rheumatoid arthritis presented to the hospital with a fevers chills cough found to have 1. Community-acquired pneumonia 2. Acute hypoxic respiratory failure secondary to community-acquired pneumonia currently on room air 3. Lactic acidosis 4. History of TTP currently on tapering prednisone 5. Rheumatoid arthritis -continue IV antibiotics, blood Date of Service: Oct 24, 2024 Billing Provider: WATSON MELGAR MD Common Visit Codes: 08296-YTI/OBS DISCH DAY >30min WATSON MELGAR MD Oct 24, 2024 15:24
[2024-10-24 16:10] VITALS: BP 112/85; PULSE 78; RESP 18; TEMP 98.1; O2SAT 100
== END 2024-10-24 16:30 | disposition home or self-care (01) | DRG 720 ==
LOC: ER 23:39 → EDBD 23:39 → OVERFLOW 10-21 05:06 → EAST 10-21 14:14
PROVIDERS: ADMIT Internal Medicine; ATTEND Internal Medicine
DX: A41.50 Gram-negative sepsis, unspecified (principal); J96.01 Acute respiratory failure with hypoxia; J15.69 Pneumonia due to other Gram-negative bacteria; E87.20 Acidosis, unspecified; K85.90 Acute pancreatitis without necrosis or infection, unspecified; J15.9 Unspecified bacterial pneumonia; M06.9 Rheumatoid arthritis, unspecified; Z20.822 Contact with and (suspected) exposure to COVID-19; Z90.49 Acquired absence of other specified parts of digestive tract
CPT/HCPCS: 36415; 71045; 80048; 80053; 82962; 83036; 83605; 83690; 83735; 83880; 84484; 85025; 87040; 87081; 87426; 87804; 93005; 94640; G0378; J1100; J1815